=== PATIENT | male | born 1940 | race Caucasian/White ===

== ENCOUNTER → 2017-07-27 | Outpatient (CLI) | payer OTHER | LOC: RAD 14:00 | DX: R07.89 Other chest pain (principal); R06.09 Other forms of dyspnea ==

== ENCOUNTER → 2018-05-24 | Outpatient (CLI) | payer OTHER ==
[~2018-05-24] MED LIST: SERTRALINE HCL50 MG PO; SYNTHROID75 MCG PO
--- NOTE | ~2018-05-24 | EKG ---
[address] [address] ELECTROCARDIOGRAM REPORT Name: Martinez ESPINAL Room #: REG MAMTA Patricia#: [id number] Admission: 05/24/18 Attend Phys: Wesley Strickland, Discharge: Date of : 42 Report #: [id number] THIS REPORT FOR: //name// [facility] Test Date: 2018-05-24 Test Time: 10:23:37 Pat Name: Martinez TEDDY Department: Room: Gender: Lopper: CHENG : 1940 Requested By: Wesley Strickland Order Number: [id number] MD: Navarro Talbot Measurements Intervals [place] Rate: 68 P: 23 AR: 209 QRS: 17 QRSD: 86 T: 55 QT: 368 QTc: 392 Interpretive Statements Sinus rhythm Low voltage, extremity and precordial leads No previous ECG available for comparison Electronically Signed On 05-24-2018 16:48:32 HAY CHOPPER by Navarro Talbot [email or web address] <ELECTRONICALLY SIGNED> By: Navarro Talbot MD 05/24/18 1648 1023 1023 Navarro Talbot MD /MILENA
== END | disposition home or self-care (01) ==
LOC: LITH 09:53
DX: N20.0 Calculus of kidney (principal); Z88.2 Allergy status to sulfonamides; Z87.442 Personal history of urinary calculi; Z98.890 Other specified postprocedural states